=== PATIENT | female | born 1965 | race Caucasian/White ===

== ENCOUNTER → 2017-03-21 | Outpatient (CLI) | payer OTHER ==
[2017-03-23 12:29] LABS: HPV Genotype 16 Not Detected (NOTDET); HPV Genotype 18 Not Detected (NOTDET)
[2017-03-30 11:51] LABS: HPV High Risk Other Detected (NOTDET)
== END | disposition home or self-care (01) ==
LOC: LAB 16:10
PROVIDERS: Nurse Practitioner Women's Health
DX: Z12.4 Encounter for screening for malignant neoplasm of cervix (principal); Z91.89 Other specified personal risk factors, not elsewhere classified
CPT/HCPCS: 87624; G0123

== ENCOUNTER → 2018-02-13 | Outpatient (CLI) | payer OTHER | END | disposition home or self-care (01) | LOC: LAB 17:53 → LAB SHORT 17:53 | DX: N89.8 Other specified noninflammatory disorders of vagina (principal) | CPT/HCPCS: 87070; 87205 ==

== ENCOUNTER → 2018-07-31 | Outpatient (CLI) | payer OTHER ==
[2018-08-04 14:07] LABS: HPV 16 Negative (Negative); HPV 18 Negative (Negative); HPV OTHER HR TYPES Negative (Negative)
== END | disposition home or self-care (01) ==
LOC: LAB SHORT 17:39 → LAB 17:39
PROVIDERS: Nurse Practitioner Women's Health
DX: Z12.4 Encounter for screening for malignant neoplasm of cervix (principal); N93.8 Other specified abnormal uterine and vaginal bleeding; R87.810 Cervical high risk human papillomavirus (HPV) DNA test positive
CPT/HCPCS: 87624; G0123

== ENCOUNTER → 2020-11-21 | Outpatient (CLI) | payer OTHER | END | disposition home or self-care (01) | LOC: LAB SHORT 12:44 | DX: D22.5 Melanocytic nevi of trunk (principal) | CPT/HCPCS: 88305 ==

== ENCOUNTER → 2020-12-27 | Outpatient (CLI) | payer OTHER | END | disposition home or self-care (01) | LOC: LAB SHORT 15:26 | DX: D22.5 Melanocytic nevi of trunk (principal) | CPT/HCPCS: 88305 ==

== ENCOUNTER → 2021-08-17 | Outpatient (CLI) | payer OTHER | END | disposition home or self-care (01) | LOC: LAB SHORT 11:39 → PLD 11:39 | DX: D48.5 Neoplasm of uncertain behavior of skin (principal) | CPT/HCPCS: 88305 ==

== ENCOUNTER → 2021-09-14 | Outpatient (CLI) | payer OTHER | END | disposition home or self-care (01) | LOC: LAB SHORT 15:04 → PLD 15:04 | DX: L85.9 Epidermal thickening, unspecified (principal); L90.5 Scar conditions and fibrosis of skin | CPT/HCPCS: 88305 ==

== ENCOUNTER 2022-02-01 13:27 | Day surgery (SDC) | payer OTHER ==
[~2022-02-01] VITALS: Ht 165.1 cm; Wt 62.4 kg
[2022-02-01] MEDS ORDERED: MERIBIN5 MG (13:48)
[2022-02-01] MEDS ORDERED: MAGNESIUM OXID500 MG (13:49)
[2022-02-01] MEDS ORDERED: Budeprion Xl300 MG (13:49)
[2022-02-01] MEDS ORDERED: TRAZ50 (13:49)
[2022-02-01] MEDS ORDERED: LEVSOD25 (13:49)
[2022-02-01] MEDS ORDERED: ERGO400 (13:51)
== END 2022-02-01 15:20 | disposition home or self-care (01) ==
LOC: ORSCSDS 13:27
PROVIDERS: Surgery
PROC: 0DJD8ZZ Inspection of Lower Intestinal Tract, Via Natural or Artificial Opening Endoscopic (ICD-10-PCS; principal; 2022-02-01 14:45)
DX: Z12.11 Encounter for screening for malignant neoplasm of colon (principal); J45.909 Unspecified asthma, uncomplicated; F41.8 Other specified anxiety disorders; Z79.899 Other long term (current) drug therapy
CPT/HCPCS: J2704; J7120

== ENCOUNTER → 2022-02-20 | Outpatient (CLI) | payer OTHER ==
[~2022-02-20] MED LIST: Budeprion Xl300 MG; ERGO400; LEVSOD25; MAGNESIUM OXID500 MG; MERIBIN5 MG; TRAZ50
== END ==
LOC: LAB 08:39 → LAB SHORT 08:39
DX: L57.0 Actinic keratosis (principal)
CPT/HCPCS: 88305